=== PATIENT | female | born 1980 | race Caucasian/White ===

== ENCOUNTER 2024-09-11 03:39 | Emergency (ER) | payer SELFPAY ==
[2024-09-11 03:47] VITALS: BP 144/125; PULSE 76; RESP 18; TEMP 36.5; O2SAT 97
--- NOTE | 2024-09-11 04:45 | DI.CT_ITS ---
Exam(s) CT NECK W EXAM: CT NECK W INDICATION: left facial swelling. COMPARISON: No exams were available for comparison TECHNIQUE: FINDINGS: VISUALIZED PARANASAL SINUSES: Unremarkable. NASOPHARYNX: Unremarkable ORODENTAL: There is swelling of the left side of the face-cheek and extending along the mandible towa rds the midline and inferiorly. No ring enhancing collections. No obvious adenopathy. There are erosive changes of the left mandible molars adjacent to this. Also some periapical lucenci es in the left mandibular molars. Also similar erosions of multiple maxillary teeth crowns. There d oes not appear to be an enhancing abscess OROPHARYNX: Unremarkable. No masses evident. HYPOPHARYNX: Unremarkable. Valleculae and epiglottis and aryepiglottic folds appear normal. VOCAL CORDS: Unremarkable. No masses evident. Subglottic airway appears unremarkable. THYROID GLAND: Unremarkable. Normal size and no obvious nodules. SALIVARY GLANDS: Parotid glands unremarkable. There is mild asymmetric enhancement of the left subma ndibular gland noted. No obvious calculi. No masses. LYMPH NODES: There is no adenopathy evident in the neck and supraclavicular regions. OTHER: There is swelling-edema over the left side of the face. No drainable abscess seen. VISUALIZED LUNG APICES: No acute findings. IMPRESSION: 1. Left face cellulitis without a drainable fluid collection. Probably related to left mole are den bunny abnormalities. 2. There is asymmetric enhancement of the left submandibular gland possibly indicating sialoadenitis . No obvious calculi are seen. RADIATION DOSE DELIVERED: 335.5mGy.cm Total DLP DATA REPOSITORY: All CT scans at this facility are submitted to the National Radiology Data Registry (NRDR) Dose Index Registry (DIR) with the [employer] (A[employer]). RADIATION OPTIMIZATION: All CT scans at this facility use at least one of these dose optimization te chniques: automated exposure control; mA and/or kV adjustment per patient size (includes targeted exa ms where dose is matched to clinical indication); or iterative reconstruction.
--- NOTE | 2024-09-11 04:45 | DI.CT_ITS ---
Exam(s) CT FACIAL W EXAM: CT FACIAL W CLINICAL HISTORY: left facial swelling. TECHNIQUE: Imaging Protocol: Axial computed tomography images with coronal and sagittal reformatted images were created and reviewed. No IV contrast COMPARISON: CT HEAD WITHOUT CONTRAST from 01/19/2011 FINDINGS: MAXILLOFACIAL CT SCAN: There is left facial cellulitis which appears to be related to left mandibular molar findings as disc ussed on the other CT scan. There does not appear to be involvement of the deep soft tissue spaces o f the neck. There is abnormal enhancement of the left submandibular gland which may suggest salad in itis. No ob vious radiopaque calculi evident. No fractures. IMPRESSION: As above. See separate more detailed dictation of CT soft tissues of the neck RADIATION DOSE DELIVERED: 335.5mGy.cm Total DLP DATA REPOSITORY: All CT scans at this facility are submitted to the National Radiology Data Registry (NRDR) Dose Index Registry (DIR) with the [employer] (ACR). RADIATION OPTIMIZATION: All CT scans at this facility use at least one of these dose optimization te chniques: automated exposure control; mA and/or kV adjustment per patient size (includes targeted exa ms where dose is matched to clinical indication); or iterative reconstruction.
--- NOTE | 2024-09-11 04:52 | ED.GENADUL_ITS ---
Discharge Plan Disposition Patient Disposition: Eloped Discharge Details Clinical Impression: Left facial swelling Primary Care Provider: David Cuba ED Provider: Pati Mullins Home Meds and New Rx's Prescriptions: No Action buprenorphine-naloxone [Suboxone] 1 EACH film 1 ea Sublingual DAILY Discharge Data Discharge Date/Time-TO BE ENTERED AT DEPARTURE: 09/11/24 08:52 HPI General Mode of arrival: ambulatory . Date/Time Provider Initiated Documentation: 09/11/24 03:53 . Limitations to Documentation: no limitations . Information obtained by: patient . HPI Narrative: 43yo F presenting with left facial swelling. Reports a cracked left lower molar, has had several days of increasing pain in this area. Yesterday noted some facial swelling on the left which has been worsening. No difficulty swallowing or difficulty with secretions. No fevers, nausea, or vomiting. Has not taken anything at home for pain. Does not see a dentist, has been trying to get established as a new patient but is having difficulty. Otherwise in her usual state of health. Related Data Home Medications ?Medication ?Instructions ?Recorded ?Confirmed buprenorphine 12 mg-naloxone 3 mg 1 ea sublingual DAILY 10/16/17 09/11/24 sublingual film (Suboxone) Allergies Allergy/AdvReac Type Severity Reaction Status Date / Time codeine (Codeine) Allergy Mild itches,vomi Unverified 09/11/24 03:57 ts tramadol Allergy Mild Hives Unverified 09/11/24 03:57 aspirin AdvReac Intermediate passes out Unverified 09/11/24 03:57 and vomits cyclobenzaprine HCl (From AdvReac Intermediate RESTLESS Unverified 09/11/24 03:57 Flexeril) LEG SYNDROME promethazine HCl (From AdvReac Intermediate RESTLESS Unverified 09/11/24 03:57 Phenergan) LEG SYNDROME General Stated Complaint: DentalOral KUN: 4 Review of Systems Narrative: see HPI Exam Narrative Exam Narrative: General: Alert, non-toxic Head: Normocephalic, atraumatic. Left lower facial/cheek swelling with no erythema or fluctuance, TTP Neck: Trachea midline, ?Neck supple. No anterior neck tenderness. ENT: ?MMM.? No oropharygeal lesions or exudate. No intraoral abscess. Poor dentition. Cardiac: ?RRR, no murmurs appreciated Resp: No respiratory distress. CTAB. Abd: ?Soft, non-distended, nontender Extremities: ?No deformities.? No peripheral edema. Neurologic: GCS 15. ? Moves all extremities freely against gravity Course Vital Signs Vital signs: Vital Signs Temperature 36.5 C 09/11/24 03:47 Pulse 76 09/11/24 03:47 Respiratory Rate 18 09/11/24 03:47 Blood Pressure 144/125 H 09/11/24 03:47 Pulse Oximetry 97 09/11/24 03:47 Temperature 36.5 C 09/11/24 03:47 Temperature Source Oral 09/11/24 03:47 Pulse 76 09/11/24 03:47 Respiratory Rate 18 09/11/24 03:47 Respiratory Effort Normal 09/11/24 03:52 Blood Pressure 144/125 H 09/11/24 03:47 Pulse Oximetry 97 09/11/24 03:47 Oxygen Delivery Method Room Air 09/11/24 03:47 Oxygen Flow Rate 0 09/11/24 03:47 Pain Level 10 09/11/24 03:47 Medical Decision Making 43yo F presenting with left lower molar pain and left sided facial swelling starting this morning. Systemically well. Vital signs reassuring on arrival. Left facial swelling on exam, no clear intraoral abscess. No trismus, anterior neck tenderness, or respiratory distress. Exam not consistent with [place]. Not septic. Will give dose of unasyn here, IV tylenol and toradol for pain, CT face & neck ordered to evaluated for buccal or deep space neck infection. -Labs reviewed as below, CBC with mild leukocytosis at 12 (nonspecific), CMP with no actionable abnormalities, not . -CT face and neck to evaluate for deep space infection; no abscess on my view. Radiology reads pending. After IV placed pt found by nursing in the bathroom with friend, unwilling to come out when directed, rustling sounds and whispering overheard. Per nursing shortly thereafter pt noted to be eloping; IV removed by WORD PROCESSING SUPERVISOR in waiting room, pt reported to have pinpoint pupils at that time, concern expressed for illicit drug use while the ED. Pt was reportedly not willing to wait for re-eval or further discussion with myself, or for CT read. Lab Data Lab results reviewed: Yes I reviewed the patient's lab results. Labs: Laboratory Tests Range/Units 09/11/ 05:15 WBC (4.4-10.8) 10^3/uL 12.39 H RBC (3.93-5.22) 10^6/uL 4.82 Hgb (11.2-15.7) g/dL 15.0 Hct (36.0-46.0) % 45.0 MCV (80-95) fL 93 MCH (27.0-33.0) pg 31.1 MCHC (32.0-36.0) % 33.3 RDW (11.7-14.6) % 12.2 Plt Count (130-400) 10^3/uL 273 MPV (8.0-11.0) fL 9.4 Immature Gran % % 0.3 Neutrophils % % 73.2 Lymphocytes % % 12.6 Monocytes % % 10.8 Eosinophils % % 2.6 Basophils % % 0.5 Nucleated RBC % (0.0-0.3) % 0.0 Absolute Neutrophils (1.2-6.7) 10^3/uL 9.07 H Absolute Lymphocytes (1.2-3.4) 10^3/uL 1.56 Absolute Monocytes (0.1-0.8) 10^3/uL 1.34 H Absolute Eosinophils (0.0-0.7) 10^3/uL 0.32 Absolute Basophils (0.0-0.2) 10^3/uL 0.06 Sodium (136-145) mmol/L 144 Potassium (3.5-5.1) mmol/L 4.1 Chloride (98-107) mmol/L 107 Carbon Dioxide (21.0-32.0) mmol/L 24.6 Anion Gap (3-11) mmol/L 12.4 H BUN (7-18) mg/dL 7 Creatinine (0.55-1.02) mg/dL 0.7 Est GFR (CKD-EPI 2020) (mL/min/1.73m2) 110.67 Glucose (74-106) mg/dL 94 Calcium (8.5-10.1) mg/dL 9.3 Total Bilirubin (0.2-1.0) mg/dL 0.58 AST (15-37) U/L 27 ALT (14-59) U/L 19 Alkaline Phosphatase (46-116) U/L 62 Total Protein (6.4-8.2) g/dL 7.8 Albumin (3.4-5.0) g/dL 3.7 Serum HCG, Qual Negative Quality:SDOH Health Related Social Needs: No Data to Display PFSH All Active Problems (Updated 09/11/24 @ 08:52 by Pati Mullins MD) Left facial swelling (Acute) Delivery normal (Acute) Medical History (Updated 09/11/24 @ 08:52 by Pati Mullins MD) Pneumonia Psoriasis Family History Mother No problems noted. Father No problems noted. Sister Disorder of thyroid gland Social History Smoking/Tobacco Use Status: Current every day Tobacco Type: cigarettes Smoking risk assessment performed?: Yes Alcohol Intake: current Alcohol Intake frequency: a few times a month Drug use: Never Substance use type: marijuana Do you feel safe in your relationship?: Yes
[2024-09-11] MEDS: ACETAMINOPHEN 1,000 MG/100 ML BAG 400 MG IVPB (05:12)
[2024-09-11] MEDS: AMPICILLIN/SULBACTAM 3 GM in Normal Saline 100 ML IVPB (05:13)
[2024-09-11] MEDS: Ketorolac 15 MG/ML VIAL IVP (05:13)
[2024-09-11 05:18] LABS: Abs Immature Grans 0.04 10^3/uL (0.0-0.06); Absolute Basophil Count 0.06 10^3/uL (0.0-0.2); Absolute Eosinophil Count 0.32 10^3/uL (0.0-0.7); Absolute Lymphocyte Count 1.56 10^3/uL (1.2-3.4); Absolute Monocyte Count 1.34 10^3/uL (0.1-0.8); Absolute Neutrophil Count 9.07 10^3/uL (1.2-6.7); Basophils % 0.5 %; Eosinophils % 2.6 %; Immature Grans % 0.3 %; Lymphocytes % 12.6 %; MCH 31.1 pg (27.0-33.0); MCHC 33.3 % (32.0-36.0); MCV 93 fL (80-95); MPV 9.4 fL (8.0-11.0); Monocytes % 10.8 %; Neutrophils % 73.2 %; Platelet Count 273 10^3/uL (130-400); RBC 4.82 10^6/uL (3.93-5.22); RDW 12.2 % (11.7-14.6); RDW-SD 42.2 fL; WBC 12.39 10^3/uL (4.4-10.8)
[2024-09-11 05:30] LABS: HCG Qual (Serum) Negative
[2024-09-11 05:34] LABS: ALT 19 U/L (14-59); AST 27 U/L (15-37); Albumin 3.7 g/dL (3.4-5.0); Alkaline Phosphatase 62 U/L (46-116); Anion Gap 12.4 mmol/L (3-11); BUN 7 mg/dL (7-18); Bilirubin, Total 0.58 mg/dL (0.2-1.0); CO2 24.6 mmol/L (21.0-32.0); CREATININE 0.7 mg/dL (0.55-1.02); Calcium 9.3 mg/dL (8.5-10.1); Chloride 107 mmol/L (98-107); Estimated GFR 110.67 (mL/min/1.73m2); Glucose 94 mg/dL (74-106); Potassium 4.1 mmol/L (3.5-5.1); Sodium 144 mmol/L (136-145); Total Protein 7.8 g/dL (6.4-8.2)
[2024-09-11] MEDS: Normal Saline - Diluent 50 ML VIAL IJ (05:53)
[2024-09-11] MEDS: Omnipaque 350 MG/ML 100 ML BTL IJ (05:55)
--- NOTE | 2024-09-11 07:24 | DI.VRAD_ITS ---
PROCEDURE INFORMATION: Exam: CT Neck With Contrast Exam date and time: 09/11/2024 5:45 AM Age: 43 years old Clinical indication: Other: Left facial swelling TECHNIQUE: Imaging protocol: Computed tomography of the neck with contrast. Contrast material: OMNI 350; Contrast volume: 100 ml; Contrast route: INTRAVENOUS (IV); COMPARISON: CT FACIAL W 09/11/2024 5:45 AM FINDINGS: Salivary glands: There is mild asymmetric parenchymal enhancement of the left submandibular gland. Teeth: Erosive changes of the left mandibular molars adjacent the inflammatory change. Small regions of periapical lucencies at the left mandibular molars are additionally noted. Erosions of multiple maxillary tooth crowns are noted in similar fashion. Pharynx: Unremarkable. No significant tonsillar enlargement. Prevertebral and retropharyngeal spaces: Unremarkable. Larynx: Unremarkable. Epiglottis is normal. Thyroid: Normal. No enlarged or calcified nodules. Trachea: Visualized trachea is unremarkable. Lungs: Mild vxzdq-qauroby-mjab-left apical emphysematous change is seen. Mediastinal space: Debris within the thoracic trachea. Lymph nodes: Unremarkable. No lymphadenopathy. Bones/joints: Disc osteophyte complex at C5-C6 without significant spinal canal stenosis. Perhaps mild to moderate bilateral osseous foraminal stenosis at this level. No acute fracture. Soft tissues: Left buccal fat stranding and swelling extending along the mandible towards the midline and inferiorly. No rim enhancing fluid collection is appreciated. IMPRESSION: 1. Left facial cellulitis without drainable fluid collection. Nidus infection is likely the left mandibular molars. Recommend dental consultation (additional multiple sites of dental disease as detailed above). No involvement of the danger/deeper spaces of the neck. 2. Asymmetric hyperenhancement of the left submandibular gland suggesting superimposed sialoadenitis. No obstruction of the duct or stones are appreciated. Dictated and Authenticated by: Rodney Crawford MD. Ordering:KEYANA Kureger MD
--- NOTE | 2024-09-11 07:26 | DI.VRAD_ITS ---
PROCEDURE INFORMATION: Exam: CT Maxillofacial With Contrast Exam date and time: 09/11/2024 5:45 AM Age: 43 years old Clinical indication: Other: Left facial swelling TECHNIQUE: Imaging protocol: Computed tomography of the face with contrast. Contrast material: OMNI 350; Contrast volume: 100 ml; Contrast route: INTRAVENOUS (IV); COMPARISON: CT NECK W 09/11/2024 5:45 AM FINDINGS: Brain: No acute findings of the visualized brain. Paranasal sinuses: No air-fluid levels. Orbital cavities: Orbits are normal. Globes are unremarkable. Teeth: Erosive changes of the left mandibular molars adjacent the inflammatory change. Small regions of periapical lucencies at the left mandibular molars are additionally noted. Erosions of multiple maxillary tooth crowns are noted in similar fashion. Salivary glands: There is mild asymmetric parenchymal enhancement of the left submandibular gland. Pharynx: Unremarkable. No significant tonsillar enlargement. Prevertebral and retropharyngeal spaces: Unremarkable. Larynx: Unremarkable. Epiglottis is normal. Thyroid: Normal. No enlarged or calcified nodules. Trachea: Visualized trachea is unremarkable. Mediastinal space: Debris within the thoracic trachea. Lymph nodes: Unremarkable. No lymphadenopathy. Lungs: Mild koktp-muwmyzk-cbic-left apical emphysematous change is seen. Bones: Disc osteophyte complex at C5-C6 without significant spinal canal stenosis. Perhaps mild to moderate bilateral osseous foraminal stenosis at this level. No acute fracture. Soft tissues: Left buccal fat stranding and swelling extending along the mandible towards the midline and inferiorly. No rim enhancing fluid collection is appreciated. IMPRESSION: 1. Left facial cellulitis without drainable fluid collection. Nidus infection is likely the left mandibular molars. Recommend dental consultation (additional multiple sites of dental disease as detailed above). No involvement of the danger/deeper spaces of the neck. 2. Asymmetric hyperenhancement of the left submandibular gland suggesting superimposed sialoadenitis. No obstruction of the duct or stones are appreciated. Dictated and Authenticated by: Rodney Crawford MD. Ordering:KEYANA Krueger MD
== END 2024-09-11 08:52 | disposition left against medical advice (07) ==
PROVIDERS: Emergency Provider Student in an Organized Health Care Education/Training Program; PCP Family Medicine
DX: R68.84 Jaw pain (principal); R22.0 Localized swelling, mass and lump, head
CPT/HCPCS: 36415; 70491; 80053; 96365; 96368; 96375; 99284; 70487; 84703; 85025; 99283; J0131; J0295; J1885; J3490

== ENCOUNTER 2025-07-01 15:26 | Emergency (ER) | payer SELFPAY ==
[2025-07-01] VITALS (57 sets, daily range): BP systolic 86–139; BP diastolic 48–78; PULSE 53–78; RESP 15–18; TEMP 36.4–37.3; O2SAT 97–100
--- NOTE | 2025-07-01 16:06 | ED.GENADUL_ITS ---
Discharge Plan Disposition Patient Disposition: Home Condition: Stable Discharge Details Clinical Impression: Polysubstance abuse Primary Care Provider: David Cuba ED Provider: Vincenzo Wright Home Meds and New Rx's Prescriptions: Continued buprenorphine-naloxone [Suboxone] 1 EACH film 1 ea Sublingual DAILY Discharge Instructions Instructions: Substance Misuse Treatment Additional Instructions: Follow-up with the legal recovery specialist first thing in the [facility] Discharge Data Discharge Date/Time-TO BE ENTERED AT DEPARTURE: 07/01/25 21:26 Discharge Physician: Vincenzo Wright HPI General Date/Time Provider Initiated Documentation: 07/01/25 15:52 . HPI Narrative: Patient presents emergency department seeking detoxification services for she has been using fentanyl cocaine and alcohol. She states she is in a lot of stress and is very sad because they took her child a year ago by DCF. Denies any depression any suicidal ideation Related Data Home Medications ?Medication ?Instructions ?Recorded ?Confirmed buprenorphine 12 mg-naloxone 3 mg 1 ea sublingual SHANDRA Y 10/16/17 07/01/25 sublingual film (Suboxone) Allergies Allergy/AdvReac Type Severity Reaction Status Date / Time codeine (Codeine) Allergy Mild itches,vomi Unverified 07/01/25 15:51 ts tramadol Allergy Mild Hives Unverified 07/01/25 15:51 aspirin AdvReac Intermediate passes out Unverified 07/01/25 15:51 and vomits cyclobenzaprine HCl (From AdvReac Intermediate RESTLESS Unverified 07/01/25 15:51 Flexeril) LEG SYNDROME promethazine HCl (From AdvReac Intermediate RESTLESS Unverified 07/01/25 15:51 Phenergan) LEG SYNDROME General Stated Complaint: DrugWithdr/MAT KUN: 3 Review of Systems Narrative: Review of Systems: Constitutional: No fevers, chills, sweats Eye: No recent visual problems ENT: No ear pain, nasal congestion, sore throat Respiratory: No shortness of breath, cough Cardiovascular: No Chest pain, palpitations, syncope Gastrointestinal: No nausea, vomiting, diarrhea Genitourinary: No hematuria Дмитрий/Lymph: Negative for bruising tendency, swollen lymph glands Endocrine: Negative for excessive thirst, excessive hunger Musculoskeletal: No back pain, neck pain, joint pain, muscle pain, decreased range of motion Integumentary: No rash, pruritus, abrasions Neurologic: Alert & oriented X 4 Psychiatric: No anxiety, depression Exam Narrative Exam Narrative: Exam; vitals signs as reported above normal Constitutional; In no acute distress, afebrile General: cooperative, healthy appearing, comfortable and no acute distress HEENT: Head: normal to inspection, no palpable skull fracture and normocephalic atraumatic Eyes: : appearance normal, both eyes and all related structures EOM intact bilaterally Pupils: PERRL : conjunctiva normal Direct ophthalmoscopy: normal light reflex, normal conjunctiva, normal visual acuity Ears: Normal TM, normal external canal Nose: normal no rhinorreha Neck no JVD, supple non tender Neck: normal visual inspection, full ROM and no lymphadenopathy Chest: normal inspection of the chest Respiratory : normal respiratory effort and able to speak in complete sentences no wheezing no rales Cardio Rate: regular rate, rhythm: regular rhythm normal heart sounds S1 and S2 no murmurs, gallops, or rubs GI : normal to inspection, normal bowel sounds, soft, non tender, non distended, no organomegaly Back/Spine/ no CVA tenderness Thoracic/Lumbar Spine: no tenderness or deformities Skin no rashes or lesions Neuro: patient alert oriented x 4 and no meningeal signs, Cranial Nerves: CN's II-XI intact bilaterally, Cognition: normal cognition, Speech: speech normal, Gait: normal gait, Depp tendon reflexes normal 2+ muscle strength 5/5 bilaterally Extremities, no edema, full range of motion, normal strength Course Vital Signs Vital signs: Vital Signs Temperature 37.3 C 07/01/25 15:42 Pulse 74 07/01/25 15:42 Respiratory Rate 18 07/01/25 15:42 Blood Pressure 124/75 07/01/25 15:42 Pulse Oximetry 98 07/01/25 15:42 Temperature 37.3 C 07/01/25 15:42 Temperature Source Oral 07/01/25 15:42 Pulse 74 07/01/25 15:42 Respiratory Rate 18 07/01/25 15:42 Blood Pressure 124/75 07/01/25 15:42 Blood Pressure Position Sitting 07/01/25 15:42 Pulse Oximetry 98 07/01/25 15:42 Medical Decision Making MDM: Summary: Patient presents emergency department stating that she has been abusing substances after she was completely sober for 8 years has been using cocaine and fentanyl and came here today for she needs help and wants inpatient hospitalization. She was seen by the polysubstance abuse men's basketball coach and she said that she would call if it has a bed at the [facility] for inpatient detoxification. Here she was medically cleared. Substance abuse men's basketball coach all of the [facility] which they have a bed for her in the morning she will be discharged home [facility] and she admitted tomorrow to the [facility] open patient states that Data Review Analysis All the data on this patient was reviewed by me including laboratory and imaging studies as well as bedside studies performed by me Independent review of Studies Imaging Lab: Labs unremarkable Risk Stratification: Patient is not suicidal or depressed but wants to the patient 6 location and she was medically cleared and will have bed tomorrow Differential Diagnosis: 1. Polysubstance abuse 2. Depression 3. Intoxication 4. 5. Consultants: Polysubstance abuse men's basketball coach complaint saw patient emergency department Shared disposition: Patient assessed disposition will follow-up with [facility] tomorrow Impression: PFSH All Active Problems (Updated 07/01/25 @ 21:22 by Vincenzo Wright MD) Polysubstance abuse (Acute) Delivery normal (Acute) Medical History Pneumonia Psoriasis Family History Mother No problems noted. Father No problems noted. Sister Disorder of thyroid gland Social History Smoking/Tobacco Use Status: Current every day Tobacco Type: cigarettes Smoking risk assessment performed?: Yes Alcohol Intake: current Alcohol Intake frequency: a few times a month Drug use: Daily Substance use type: marijuana, crack/cocaine, heroin and IV drugs Details: Patient had IV drugs at 3:30pm today Do you feel safe in your relationship?: Yes PAWSS Have you Been Recently Intoxicated or Drunk Within the Last 30 days?: Yes Have you Ever Experienced Previous Episodes of Alcohol Withdrawal?: No Have you ever Experienced Withdrawal Seizures?: Yes Have you ever Experienced Delirium Tremens(DT)s?: Yes Have you ever undergone Alcohol Rehabilitation Treatment (i.e, inpt ot outpatient treatment programs)?: Yes Have you ever Experienced Blackouts?: Yes Have you ever Combined Alcohol with other Downers within the last 90 days?: Yes Have you ever Combined Alcohol with any other Substance of Abuse during the last 90 days?: Yes Positive Blood Alcohol level on Presentation? [PCS.BAL]: Yes Evidence of Increased Autonomic Activity (i.e. HR>120, tremor, sweating, agitation, nausea)?: Yes Result: 9
[2025-07-01 17:29] LABS: Glucose Negative (Negative)
[2025-07-01 17:45] LABS: Cannabinoids THC Negative (Negative); METHADONE URINE SCREEN Negative (Negative)
[2025-07-01 20:10] LABS: Abs Immature Grans 0.02 10^3/uL (0.0-0.06); HCT 44.4 % (36.0-46.0); HGB 15.1 g/dL (11.2-15.7); Immature Grans % 0.2 %; MCH 30.0 pg (27.0-33.0); MCHC 34.0 % (32.0-36.0); MCV 88 fL (80-95); MPV 9.2 fL (8.0-11.0); Platelet Count 312 10^3/uL (130-400); RBC 5.03 10^6/uL (3.93-5.22); RDW 13.2 % (11.7-14.6); RDW-SD 42.6 fL; WBC 8.52 10^3/uL (4.4-10.8)
[2025-07-01 20:25] LABS: ALT 22 U/L (14-59); AST 23 U/L (15-37); Albumin 4.0 g/dL (3.4-5.0); Alkaline Phosphatase 65 U/L (46-116); Anion Gap 6.5 mmol/L (3-11); BUN 8 mg/dL (7-18); Bilirubin, Total 0.7 mg/dL (0.2-1.0); CO2 30.5 mmol/L (21.0-32.0); Calcium 8.9 mg/dL (8.5-10.1); Chloride 104 mmol/L (98-107); Estimated GFR 114.15 (mL/min/1.73m2); Glucose 91 mg/dL (74-106); Potassium 3.4 mmol/L (3.5-5.1); Sodium 141 mmol/L (136-145); Total Protein 7.5 g/dL (6.4-8.2)
== END 2025-07-01 21:26 | disposition home or self-care (01) ==
PROVIDERS: Emergency Provider Emergency Medicine Emergency Medical Services; PCP Family Medicine
DX: F19.10 Other psychoactive substance abuse, uncomplicated (principal)
CPT/HCPCS: 99283; 99284; 80053; 80307; 81003; 85025